=== PATIENT | female | born 1970 | race Caucasian/White ===

== ENCOUNTER → 2016-10-25 | Outpatient (CLI) | payer BC ==
[2016-10-25 09:01] LABS: ALT 43 U/L (9-52); AST 23 U/L (14-36); Alkaline Phosphatase 96 U/L (38-126); Bilirubin, Delta 0.3 mg/dL (0.0-0.2); Total Bilirubin 0.6 mg/dL (0.2-1.3); Total Protein 7.1 g/dL (6.3-8.2)
[2016-10-25 09:26] LABS: Hepatitis B Surface Ag Index 0.06
[2016-10-25 09:32] LABS: Hepatitis B Core IgM Index 0.03
[2016-10-25 09:43] LABS: Hepatitis C Virus IgG Index 0.02
[2016-10-25 09:48] LABS: Hepatitis C Virus IgG Ab Negative (Negative)
== END | disposition home or self-care (01) ==
LOC: LABWHC1 07:22
PROVIDERS: ATTEND Family Medicine
DX: R94.5 Abnormal results of liver function studies (principal)
CPT/HCPCS: 36415; 80074; 80076; 84439; 84443

== ENCOUNTER → 2017-08-06 | Outpatient (CLI) | payer BC ==
--- NOTE | 2017-08-06 18:43 | CONS ---
CONSULTATION This is a consultation note for sleep apnea. A 46-year-old nice white female patient coming in with concern for sleep apnea. Recently she has been feeling very sleepy and tired. Her current [place] Score is at 17. She goes to bed around 10:00 p.m., wakes up at 6:00 a.m. in the morning. She. She snores and at times she wakes up gasping for air. She is worried about her sleep quality and she thinks that she may have an underlying sleep apnea and this same concern was also shared by her primary care physician, Dr. Michelle Robledo. She is obese and she has been trying to lose weight. Nonsmoker. No history of substance abuse or alcoholism. No sleep paralysis. No cataplexy. No hallucinations. PAST MEDICAL HISTORY: Obesity. PAST SURGICAL HISTORY: Cholecystectomy and shoulder surgery. DRUG ALLERGIES: None. MEDICATIONS: None. SOCIAL HISTORY: The patient is a nonsmoker. No history of alcohol. No history of IV drugs. FAMILY HISTORY: Negative for sleep apnea. REVIEW OF SYSTEMS: A 12-point review of systems was done. Positive findings are all mentioned above in the history of present illness. Of significance is the absence of any heartburn, palpitations, anxiety or panic attacks. No sleepwalking or sleep talking. No sleep paralysis. No hallucinations. No cataplexy. No substance abuse. No meningitis. No head trauma. No anxiety. No depression. No claustrophobia. PHYSICAL EXAMINATION: BP is 141/82, pulse 90 respirations 16, temperature 97.9, saturation 97% on room air. Weight is 275. Height is 5 feet 5 inches. Neck size is 16-1/2 inches. BMI is 45.7. GENERAL APPEARANCE: Calm, comfortable, obese. HEAD: Atraumatic, normocephalic. NECK: Short neck. Crowding of posterior pharynx. There is no goiter or neck masses. LUNGS: Diminished. Otherwise clear. HEART: Sounds are regular rate and rhythm. Normal S1, S2. No S3, S4. No murmurs. ABDOMEN: Soft, nontender. No organomegaly. EXTREMITIES: No edema. No cyanosis or clubbing. SKIN: Negative for any ulcers, wounds or cellulitis. NEURO: O and A x3. IMPRESSION: 1. Obstructive sleep apnea clinically suspected. In fact, my clinical suspicion is quite high and the patient will undergo a screening polysomnogram. 2. Hypersomnia. [place] score of 17. 3. Obesity with a body mass index of 45.7. PLAN: 1. Proceed with a screening polysomnogram. 2. Will decide on treatment according to the results of this PSG. 3. Encourage weight loss. 4. Will continue to follow. EDIN / ROSE: [id number] /
== END ==
LOC: SLEEP 16:53
PROVIDERS: ATTEND Internal Medicine Critical Care Medicine
DX: G47.10 Hypersomnia, unspecified (principal); E66.9 Obesity, unspecified; Z68.42 Body mass index [BMI] 45.0-49.9, adult
CPT/HCPCS: 99211

== ENCOUNTER → 2018-02-25 | Outpatient (CLI) | payer BC ==
--- NOTE | 2018-02-25 18:03 | PN ---
PROGRESS NOTE Stephani Rhodes is a 47-year-old female patient diagnosed having obstructive sleep apnea, AHI of 22, currently coming in for a compliancy check. She has an APAP with a minimum pressure of 5, maximum pressure of 20. She is using an Anita View full-face mask. Much benefitting from her treatment and has no complaints, averaging around 6.8 hours of CPAP use per night. Leak factor is 8L/minute. Average pressure is 14.6. AHI is down to 1 while on treatment. CPAP use for more than 4 hours is 26/30. Weight has been stable. No other complaints otherwise. Treatment has been successful. REVIEW OF SYSTEMS: A 12-point review of system was done. Positive findings are mentioned above in the history of present illness. BP is 143/83, pulse 84, respirations 20, [place] score is 14, temperature 98.1, eight is 282. GENERAL APPEARANCE: Calm, comfortable. Head is atraumatic, normocephalic. Neck is supple. No JVD. No goiter or neck masses. Mallampati class IV. LUNGS: Clear to auscultation. Heart sounds regular rate and rhythm. Normal S1, S2. No S3. No murmurs. ABDOMEN: Soft, nontender. No organomegaly. EXTREMITIES: No edema. No cyanosis. No clubbing. NEUROLOGIC: A and O x3. No focal neurological deficits. PSYCHIATRIC: Negative for anxiety or depression. IMPRESSION: 1. Symptomatic obstructive sleep apnea, apnea-hypopnea index of 22, successfully treated with APAP. 2. Obesity with a weight of 282 and current BMI of 45.7. 3. Snoring, resolved with CPAP therapy. 4. Hypersomnia, improved. PLAN: 1. Continue APAP therapy at same level of pressure. 2. Continue Anita View full face mask. 3. Continue same APAP setting. 4. Add EPR and set at a level of 3. 5. Encourage weight loss. 6. See me back in a year's time in followup, earlier if needed. MMODL / IJN: [id number] /
== END | disposition home or self-care (01) ==
LOC: SLEEP 16:56
PROVIDERS: ATTEND Internal Medicine Critical Care Medicine
DX: G47.33 Obstructive sleep apnea (adult) (pediatric) (principal); G47.10 Hypersomnia, unspecified; E66.9 Obesity, unspecified; Z68.42 Body mass index [BMI] 45.0-49.9, adult; Z99.89 Dependence on other enabling machines and devices

== ENCOUNTER → 2018-06-25 | Outpatient (CLI) | payer BC ==
--- NOTE | 2018-06-25 14:48 | US ---
EXAMINATION TYPE: US venous doppler duplex LE LT DATE OF EXAM: 06/25/2018 2:10 PM COMPARISON: NONE CLINICAL HISTORY: 47-year-old female M79.662 PAIN IN LT LOWER LEG. Pain and edema left leg for 1 selma h SIDE PERFORMED: Left TECHNIQUE: The lower extremity deep venous system is examined utilizing real time linear array sonog tana with graded compression, doppler sonography and color-flow sonography. FINDINGS: VESSELS IMAGED: External Iliac Vein (EIV) Common Femoral Vein Deep Femoral Vein Greater Saphenous Vein * Femoral Vein Popliteal Vein Small Saphenous Vein * Proximal Calf Veins (* superficial vessels) Left Leg: No evidence of DVT IMPRESSION: No evidence for DVT within the left lower extremity imaged from the groin to the upper calf.
== END ==
LOC: RADUSWWP 13:49
PROVIDERS: ATTEND Family Medicine
DX: M79.662 Pain in left lower leg (principal)

== ENCOUNTER → 2018-07-21 | Outpatient (CLI) | payer BC ==
--- NOTE | 2018-07-22 08:07 | XR ---
EXAMINATION TYPE: XR knee complete LT DATE OF EXAM: 07/21/2018 CLINICAL HISTORY: pain TECHNIQUE: Three views of the left knee are obtained. COMPARISON: None. FINDINGS: There is no acute fracture/dislocation. The tri-compartment joint spaces appear within no rmal limits. The overlying soft tissue appears unremarkable. IMPRESSION: There is no acute fracture or dislocation ICD 10 NO FRACTURE, INITIAL EVALUATION
== END | disposition home or self-care (01) ==
LOC: RADXRMAIN 17:45
PROVIDERS: ATTEND Family Medicine
DX: M25.562 Pain in left knee (principal)

== ENCOUNTER → 2023-04-19 | Outpatient (CLI) | payer BC ==
--- NOTE | 2023-04-22 15:28 | MM ---
Reason for Exam: Screening (asymptomatic). Last mammogram was performed 14 year(s) and 6 month(s) ago. Patient History: Menarche at age 15. First Full-Term at age 30. Hormonal Contraceptives, starting at age 19 for 14 years. Last menstrual period: 03/15/2023 Risk Values: Tracy 5 year model risk: 1.1%. NCI Lifetime model risk: 9.9%. Prior Study Comparison: 09/29/2008 Bilateral Diagnostic Mammogram, [facility]. Tissue Density: The breast tissue is heterogeneously dense. This may lower the sensitivity of mammography. Findings: Analyzed By CAD. Pattern appears symmetrical. A few scattered benign punctate calcifications are within the upper outer right breast. No suspicious groups of microcalcifications, spiculated or lobular masses, architectural distortion or other secondary signs of malignancy are mammographically apparent. Overall Assessment: Benign, BI-RAD 2 Management: Screening Mammogram of both breasts in 1 year. A negative mammogram report should not preclude additional follow up of suspicious palpable abnormalities. Patient should continue monthly self breast exam. A clinical breast exam by your physician is recommended on an annual basis and results should be correlated with mammographic findings. Electronically signed and approved by: Cesar Kebede D.O. Radiologis
== END | disposition home or self-care (01) ==
LOC: RADMAMWWP 15:58
PROVIDERS: ATTEND Family Medicine
DX: Z12.31 Encounter for screening mammogram for malignant neoplasm of breast (principal)
CPT/HCPCS: 77067

== ENCOUNTER 2023-04-26 14:37 | Day surgery (SDC) | payer BC ==
[2023-04-22 10:52] VITALS: BMI 43.5
[~2023-04-26 14:37] MED LIST: LACTATED RINGERS 1,000 ML IV SCH; LIDOCAINE 1% (10MG/ML) FOR IV START INTRADERMA PRN; ONDANSETRON 4 MG/2 ML VIAL IVP PRN
[2023-04-26 15:43] VITALS: TEMP 97.7
[2023-04-26] MEDS ORDERED: PROPOFOL 10 MG/ML 20 ML VIAL IV ONE (16:29)
--- NOTE | 2023-04-26 16:44 | P.PCN ---
Date of Procedure: 04/26/23 Procedure(s) Performed: BRIEF HISTORY: Patient is a 52-year-old pleasant white scheduled for an elective colonoscopy as a part of screening for colon cancer PROCEDURE PERFORMED: Colonoscopy. PREOPERATIVE DIAGNOSIS: Screening for colon cancer. IV sedation per Anesthesia. PROCEDURE: After informed consent was obtained, the patient, was brought into the endoscopy unit. IV sedation was administered by Anesthesia under continuous monitoring. Digital rectal examination was normal. Initially the Olympus CF-160 flexible video colonoscope was then inserted in the rectum, gradually advanced into the cecum without any difficulty. Careful examination was performed as the scope was gradually being withdrawn. Ileocecal valve and the appendiceal orifice were visualized and appeared normal. Prep was excellent. Mucosa of the cecum, ascending colon, transverse colon, descending colon, sigmoid colon, and rectum appeared normal. Scattered sigmoid diverticulosis Retroflexion was performed in the rectum and no lesions were seen. The patient tolerated the procedure well. IMPRESSION: Normal-appearing colon from rectum to cecum no evidence of colorectal neoplasia Scattered sigmoid diverticulosis . RECOMMENDATIONS: Findings of this examination were discussed with the patient as well as her family she was advised to have a repeat screening colonoscopy in 10 years .
[2023-04-26 17:27] VITALS: BP 116/70; PULSE 86; RESP 16
== END 2023-04-26 17:29 | disposition home or self-care (01) ==
LOC: ORWHC2ENDO 14:37
PROVIDERS: ATTEND Internal Medicine Gastroenterology
DX: Z12.11 Encounter for screening for malignant neoplasm of colon (principal); K57.30 Diverticulosis of large intestine without perforation or abscess without bleeding; E78.5 Hyperlipidemia, unspecified; G47.33 Obstructive sleep apnea (adult) (pediatric); J45.909 Unspecified asthma, uncomplicated; M19.90 Unspecified osteoarthritis, unspecified site; Z79.899 Other long term (current) drug therapy
CPT/HCPCS: 45378; 81025; J2704

== ENCOUNTER → 2024-04-24 | Outpatient (CLI) | payer BC ==
--- NOTE | 2024-04-24 12:04 | US ---
EXAMINATION TYPE: US transvaginal DATE OF EXAM: 04/24/2024 COMPARISON: Pelvic ultrasound 01/31/2016 CLINICAL INDICATION: Female, 53 years old with history of R10.30 LOWER ABDOMINAL PAIN, UNSPECIFIED; P ain TECHNIQUE: Transvaginal (TV). EXAM MEASUREMENTS: Uterus: 7.9 x 3.8 x 3.4 cm Endometrial Stripe: .5 cm 1. Uterus: Anteverted Nabothian cysts seen 2. Endometrium: wnl 3. Right Ovary: Obscured by overlying bowel gas 4. Left Ovary: Obscured by overlying bowel gas 5. Bilateral Adnexa: wnl 6. Posterior cul-de-sac: wnl Unremarkable anteverted uterus. Incidental cervical nabothian cyst. Endometrium is within normal limi ts. Both ovaries are nonvisualized due to overlying bowel gas. No free fluid. IMPRESSION: 1. No ultrasound evidence for an acute process. 2. Nonvisualization of both ovaries due to overlying bowel gas.
== END | disposition home or self-care (01) ==
LOC: RADUSWWP 10:59
PROVIDERS: ATTEND Family Medicine
DX: N93.9 Abnormal uterine and vaginal bleeding, unspecified (principal); R10.30 Lower abdominal pain, unspecified
CPT/HCPCS: 76830